=== PATIENT | male | born 1940 | race Asian ===

== ENCOUNTER 2019-02-07 12:46 | Emergency (ER) | payer OTHER, MEDICARE ==
[2019-02-07] MEDS ORDERED: HYDROCODONE/APAP 7.5/325 MG TAB ONE (13:45)
[2019-02-07 13:56] LABS: Absolute Lymphocytes (CBC) 0.6 K/uL (0.7-4.9); Absolute Monocytes 0.3 K/uL (0.1-1.3); Absolute Neutrophil 8.9 K/uL (1.8-8.0); Basophils % 0.3 % (0-1.3); Hematocrit 41.1 % (39.6-49.0); Lymphocytes % 5.8 % (15.3-44.8); MPV 8.4 fL (7.6-11.3); Monocytes % 2.6 % (3.3-12.3); RBC Red Blood Cell Count 4.28 M/uL (4.33-5.43)
--- NOTE | 2019-02-07 13:57 | RAD REPORT ---
EXAM DESCRIPTION: RAD - Knee Left 3 View - 02/07/2019 1:36 pm CLINICAL HISTORY: Left knee pain COMPARISON: None. FINDINGS: No fracture, dislocation or periosteal reaction.Moderate joint effusion is present. No yajaira nt space narrowing. Large bone spur present at the quadriceps tendon attachment to the patella. Edema changes are present in the subcutaneous fatty tissues. No air or foreign body. IMPRESSION: Moderate joint effusion with no acute bone finding. Clinical concerns for internal derangement or occult bony injury could be further assessed with MR im aging.
[2019-02-07 14:10] LABS: C-Reactive Protein 42.1 mg/L (<3.00); Potassium 3.8 mmol/L (3.5-5.1)
--- NOTE | 2019-02-07 14:42 | RAD REPORT ---
EXAM DESCRIPTION: US - Extremity Venous Uni Ltd - 02/07/2019 2:20 pm CLINICAL HISTORY: Left leg pain and swelling COMPARISON: None. TECHNIQUE: Real-time sonographic evaluation of the left lower extremity deep venous system was perfo rmed. FINDINGS: Normal compressibility, flow augmentation, phasic flow and spontaneous flow are identified in the left lower extremity common femoral, superficial femoral, popliteal and posterior tibial vein s. No intraluminal filling defects seen. IMPRESSION: No DVT in the left lower extremity.
[2019-02-07 17:24] LABS: Body Fluid Source SYNOVIAL
[2019-02-07 17:25] LABS: Appearance SLT. TURBID (CLEAR); Body Fluid WBC 990 /mm^3; Color of fluid Yellow (COLORLESS)
--- NOTE | 2019-02-07 18:01 | EDPHYS ---
Physician Documentation [facility] Name: Torin Galvez Age: 78 yrs Sex: Male : 1940 Arrival Date: 02/07/2019 Time: 12:50 Bed 15 Private MD: Emile Oh H ED Physician Domingo Greene HPI: 02/07 13:59 This 78 yrs old Male presents to ER via Ambulatory with complaints of Knee kb swelling. 13:59 The patient presents with decreased range of motion, pain, that is acute, swelling, kb tenderness. The complaints affect the left knee. Context: The problem was sustained at home, resulted from an unknown cause, the patient can partially bear weight, uses a walker, Problem is a result from a previous injury: No. Modifying factors: The symptoms are alleviated by remaining still, the symptoms are aggravated by movement, weight bearing, bending knee. Associated signs and symptoms: Pertinent positives: fever, swelling, warmth, Pertinent negatives calf tenderness, nausea, numbness, rash, tingling, vomiting, weakness. Treatment prior to arrival includes: indomethocin, tylenol #3, prednisone. Severity of symptoms: At their worst the symptoms were moderate, in the emergency department the symptoms are unchanged. The patient has not experienced similar symptoms in the past. The patient has been recently seen by a physician: the patient's primary care provider. Pt states he had a flare-up of gout to right great toe about a month ago. Started taking indomethocin for that as prescribed, then started having swelling. Went to PCP and was given Tylenol #3 for pain. States he took that for about a week and the pain and swelling moved to left leg. Went back to PCP and was given Prednisone taper for the swelling. States he was given a 9 day taper and he took day 6 dose today. Came in because his left knee "hurt like hell" and he was having chills and fever this morning. . Historical: - Allergies: 13:06 No Known Allergies; hb - Home Meds: 13:06 prednisone 20 mg Oral tab once daily [Active]; allopurinol 300 mg Oral tab 1 tab once hb daily [Active]; Tylenol #3 Oral [Active]; Symbicort inhalation inhalation [Active]; ProAir HFA 90 mcg/actuation inhalation HFAA [Active]; lisinopril 20 mg Oral tab 1 tab once daily [Active]; Metformin Oral [Active]; tamsulosin 0.4 mg oral cp24 [Active]; clonidine HCl 0.1 mg Oral tab 1 tab once daily [Active]; Combigan 0.2-0.5 % ophthalmic drop [Active]; - PMHx: 13:06 Gout; Hypertension; hb - Immunization history:: Adult Immunizations up to date. - Social history:: Smoking status: Patient/guardian denies using tobacco. - Ebola Screening: : No symptoms or risks identified at this time. ROS: 13:59 Neck: Negative for injury, pain, and swelling, Cardiovascular: Negative for chest pain, kb palpitations, and edema, Respiratory: Negative for shortness of breath, cough, wheezing, and pleuritic chest pain, Abdomen/GI: Negative for abdominal pain, nausea, vomiting, diarrhea, and constipation, Back: Negative for injury and pain, : Negative for injury, bleeding, discharge, and swelling, Neuro: Negative for headache, weakness, numbness, tingling, and seizure. 13:59 Constitutional: Positive for chills, fever. 13:59 MS/extremity: Positive for decreased range of motion, swelling, tenderness, warmth, of the left knee. Exam: 13:59 Constitutional: This is a well developed, well nourished patient who is awake, alert, kb and in no acute distress. Head/Face: Normocephalic, atraumatic. Neck: Trachea midline, no thyromegaly or masses palpated, and no cervical lymphadenopathy. Supple, full range of motion without nuchal rigidity, or vertebral point tenderness. No Meningismus. Chest/axilla: Normal chest wall appearance and motion. Nontender with no deformity. No lesions are appreciated. Cardiovascular: Regular rate and rhythm with a normal S1 and S2. No gallops, murmurs, or rubs. Normal PMI, no JVD. No pulse deficits. Respiratory: Lungs have equal breath sounds bilaterally, clear to auscultation and percussion. No rales, rhonchi or wheezes noted. No increased work of breathing, no retractions or nasal flaring. Abdomen/GI: Soft, non-tender, with normal bowel sounds. No distension or tympany. No guarding or rebound. No evidence of tenderness throughout. Neuro: Awake and alert, GCS 15, oriented to person, place, time, and situation. Cranial nerves II-XII grossly intact. Motor strength 5/5 in all extremities. Sensory grossly intact. Cerebellar exam normal. Normal gait. 13:59 Musculoskeletal/extremity: Extremities: grossly normal except: noted in the left knee: decreased ROM, pain, swelling, tenderness, warmth, noted in the left leg: swelling, ROM: limited active range of motion due to pain, in the left knee, Circulation is intact in all extremities. Sensation intact. Vital Signs: 13:06 BP 200 / 100; Pulse 100; Resp 18; Temp 99.2(TE); Pulse Ox 99% on R/A; Weight 64.41 kg; hb Height 5 ft. 3 in. (160.02 cm); Pain 9/10; 14:10 BP 185 / 91; Pulse 96; Resp 17; Pulse Ox 99% ; tw2 14:51 BP 165 / 88; Pulse 97; Resp 18; Temp 97.9(TE); Pulse Ox 95% on R/A; tw2 16:16 BP 178 / 99; Pulse 91; Resp 17; Pulse Ox 95% on R/A; tw2 17:13 BP 167 / 99; Pulse 90; Resp 17; Pulse Ox 96% on R/A; tw2 18:19 BP 168 / 84; Pulse 89; Resp 17; Pulse Ox 99% on R/A; tw2 13:06 Body Mass Index 25.15 (64.41 kg, 160.02 cm) hb Procedures: 15:58 Joint Treatment: Aspiration of left knee using 22 g spinal needle. Removed yellow rn fluid, bloody fluid, Specimen sent to lab. Dressed with 4x4s, Patient tolerated well. MDM: 13:08 Patient medically screened. kb 14:10 Data reviewed: vital signs, nurses notes. Data interpreted: Pulse oximetry: on room air kb is 99 %. Interpretation: normal. 17:55 ED course: Consulted with Dr. Forbes regarding fluid analysis, states consistent with rn gout and inflammatory arthritis and not septic arthritis, will dc home with continuation of gout meds and pain medication.. 17:58 Counseling: I had a detailed discussion with the patient and/or guardian regarding: the kb historical points, exam findings, and any diagnostic results supporting the discharge/admit diagnosis, lab results, radiology results, the need for outpatient follow up, a family practitioner, to return to the emergency department if symptoms worsen or persist or if there are any questions or concerns that arise at home. 02/07 13:21 Order name: CBC with Diff kb 02/07 13:21 Order name: Basic Metabolic Panel kb 02/07 13:21 Order name: Sed Rate kb 02/07 13:21 Order name: CRP; Complete Time: 14:10 kb 02/07 13:21 Order name: Procalcitonin; Complete Time: 14:58 kb 02/07 13:21 Order name: Blood Culture Adult (2) kb 02/07 13:21 Order name: Knee Left 3 View XRAY; Complete Time: 14:10 kb 02/07 13:22 Order name: CBC with Automated Diff; Complete Time: 14:21 EDMS 02/07 13:23 Order name: Basic Metabolic Panel; Complete Time: 14:10 EDMS 02/07 13:23 Order name: Sedimentation Rate, Westergren; Complete Time: 14:21 EDMS 02/07 15:02 Order name: Body Fluid Culture rn 02/07 15:02 Order name: Fluid Cell Count,Body kb 02/07 15:02 Order name: Fluid Crystals; Complete Time: 16:56 kb 02/07 15:03 Order name: Body Fluid Cell Count; Complete Time: 17:52 EDMS 02/07 13:21 Order name: IV Start; Complete Time: 14:07 kb 02/07 13:21 Order name: US Extremity Venous Unilateral Ltd; Complete Time: 14:44 kb 02/07 14:46 Order name: Vital Signs; Complete Time: 14:52 kb 02/07 15:08 Order name: Surgical Consent; Complete Time: 16:14 kb 02/07 15:18 Order name: Misc. Order; Complete Time: 15:18 tw2 Administered Medications: 13:35 Drug: [place] (7.5 mg-325 mg) 1 tabs Route: PO; tw2 14:52 Follow up: Response: No adverse reaction; Pain is decreased tw2 Disposition: 18:36 Co-signature as Attending Physician, Domingo Greene MD. rn Disposition: 02/07/19 17:59 Discharged to Home. Impression: Gout. - Condition is Stable. - Discharge Instructions: Gout, [id number]. - Prescriptions for Tylenol- Codeine #3 300-30 mg Oral Tablet - take 1 tablet by ORAL route every 6 hours As needed; 20 tablet. - Medication Reconciliation Form, Thank You Letter, Antibiotic Education, Prescription Opioid Use form. - Follow up: Emergency Department; When: As needed; Reason: Worsening of condition. Follow up: Private Physician; When: 2 - 3 days; Reason: Recheck today's complaints, Continuance of care, Re-evaluation by your physician. Signatures: Dispatcher [employer] EDHI Shauna Alberto, MENTAL HEALTH TECH-C MENTAL HEALTH TECH-Domingo Phillip MD MD rn Baxter, Heather, RN RN hb Wise, Tara, RN RN tw2 Corrections: (The following items were deleted from the chart) 18:34 17:59 02/07/2019 17:59 Discharged to Home. Impression: Gout. Condition is Stable. Forms tw2 are Medication Reconciliation Form, Thank You Letter, Antibiotic Education, Prescription Opioid Use. Follow up: Emergency Department; When: As needed; Reason: Worsening of condition. Follow up: Private Physician; When: 2 - 3 days; Reason: Recheck today's complaints, Continuance of care, Re-evaluation by your physician. kb
--- NOTE | 2019-02-07 18:01 | ER ---
Nurse's Notes [facility] Name: Torin Galvez Age: 78 yrs Sex: Male : 1940 Arrival Date: 02/07/2019 Time: 12:50 Bed 15 Private MD: Emile Oh H Diagnosis: Gout Presentation: 02/07 13:02 Presenting complaint: left knee pain x 1 week, chills and subjective fever today. Pain hb is unrelieved by allopurinol, prednisone, and Tylenol #3. Transition of care: patient was not received from another setting of care. Onset of symptoms was February 07, 2019. Risk Assessment: Do you want to hurt yourself or someone else? Patient reports no desire to harm self or others. Care prior to arrival: None. 13:02 Method Of Arrival: Ambulatory hb 13:02 Acuity: J CARLOS 3 hb 13:07 Initial Sepsis Screen: Does the patient meet any 2 criteria? No. Patient's initial hb sepsis screen is negative. Does the patient have a suspected source of infection? No. Patient's initial sepsis screen is negative. Historical: - Allergies: 13:06 No Known Allergies; hb - Home Meds: 13:06 prednisone 20 mg Oral tab once daily [Active]; allopurinol 300 mg Oral tab 1 tab once hb daily [Active]; Tylenol #3 Oral [Active]; Symbicort inhalation inhalation [Active]; ProAir HFA 90 mcg/actuation inhalation HFAA [Active]; lisinopril 20 mg Oral tab 1 tab once daily [Active]; Metformin Oral [Active]; tamsulosin 0.4 mg oral cp24 [Active]; clonidine HCl 0.1 mg Oral tab 1 tab once daily [Active]; Combigan 0.2-0.5 % ophthalmic drop [Active]; - PMHx: 13:06 Gout; Hypertension; hb - Immunization history:: Adult Immunizations up to date. - Social history:: Smoking status: Patient/guardian denies using tobacco. - Ebola Screening: : No symptoms or risks identified at this time. Screenin:04 Abuse screen: Denies threats or abuse. Nutritional screening: No deficits noted. tw2 Tuberculosis screening: No symptoms or risk factors identified. Fall Risk None identified. Assessment: 13:10 General: Appears in no apparent distress. distressed, well groomed, Behavior is calm, tw2 cooperative, appropriate for age. Pain: Complains of pain in left leg. Neuro: Level of Consciousness is awake, alert, obeys commands, Oriented to person, place, time, situation. Cardiovascular: Heart tones S1 S2 Patient's skin is warm and dry. Respiratory: Airway is patent Respiratory effort is even, unlabored, Respiratory pattern is regular, symmetrical, Breath sounds are clear bilaterally. GI: No signs and/or symptoms were reported involving the gastrointestinal system. : No signs and/or symptoms were reported regarding the genitourinary system. EENT: No signs and/or symptoms were reported regarding the EENT system. Derm: No signs and/or symptoms reported regarding the dermatologic system. Musculoskeletal: Swelling present in left knee. 14:06 Reassessment: Patient appears in no apparent distress at this time. No changes from tw2 previously documented assessment. Patient and/or family updated on plan of care and expected duration. Pain level reassessed. Patient is alert, oriented x 3, equal unlabored respirations, skin warm/dry/pink. US at bedside at this time. 15:00 Reassessment: Patient appears in no apparent distress at this time. No changes from tw2 previously documented assessment. Patient and/or family updated on plan of care and expected duration. Pain level reassessed. Patient is alert, oriented x 3, equal unlabored respirations, skin warm/dry/pink. 16:16 Reassessment: Patient appears in no apparent distress at this time. No changes from tw2 previously documented assessment. Patient and/or family updated on plan of care and expected duration. Pain level reassessed. Patient is alert, oriented x 3, equal unlabored respirations, skin warm/dry/pink. 17:13 Reassessment: Patient appears in no apparent distress at this time. No changes from tw2 previously documented assessment. Patient and/or family updated on plan of care and expected duration. Pain level reassessed. Patient is alert, oriented x 3, equal unlabored respirations, skin warm/dry/pink. 18:20 Reassessment: Patient appears in no apparent distress at this time. No changes from tw2 previously documented assessment. Patient and/or family updated on plan of care and expected duration. Pain level reassessed. Patient is alert, oriented x 3, equal unlabored respirations, skin warm/dry/pink. 18:34 Reassessment: Patient appears in no apparent distress at this time. tw2 Vital Signs: 13:06 BP 200 / 100; Pulse 100; Resp 18; Temp 99.2(TE); Pulse Ox 99% on R/A; Weight 64.41 kg; hb Height 5 ft. 3 in. (160.02 cm); Pain 9/10; 14:10 BP 185 / 91; Pulse 96; Resp 17; Pulse Ox 99% ; tw2 14:51 BP 165 / 88; Pulse 97; Resp 18; Temp 97.9(TE); Pulse Ox 95% on R/A; tw2 16:16 BP 178 / 99; Pulse 91; Resp 17; Pulse Ox 95% on R/A; tw2 17:13 BP 167 / 99; Pulse 90; Resp 17; Pulse Ox 96% on R/A; tw2 18:19 BP 168 / 84; Pulse 89; Resp 17; Pulse Ox 99% on R/A; tw2 13:06 Body Mass Index 25.15 (64.41 kg, 160.02 cm) hb ED Course: 12:50 Patient arrived in ED. mr 12:51 Emile Oh DO is Private Physician. mr 13:03 Triage completed. hb 13:03 [facility]una Alber[facility]-C [facility] kb 13:03 Domingo Greene MD is Attending Physician. kb 13:06 Arm band placed on right wrist. hb 13:09 Kaylah Maria, BRYANT is Primary Nurse. tw2 13:10 Bed in low position. Call light in reach. Pulse ox on. NIBP on. tw2 13:38 Knee Left 3 View XRAY In Process Unspecified. EDMS 13:40 Inserted saline lock: 22 gauge in right antecubital area, using aseptic technique. tw2 Blood collected. 14:19 Ultrasound completed. Patient tolerated well. sg3 14:21 US Extremity Venous Unilateral Ltd In Process Unspecified. EDMS 15:45 assisted provider with needle aspiration to LEFT knee, pt tolerated well, returned 10 tw2 ml serosanguineous fluid, pressure dressing applied. 18:34 IV discontinued, intact, bleeding controlled, No redness/swelling at site. Pressure tw2 dressing applied. Administered Medications: 13:35 Drug: [place] (7.5 mg-325 mg) 1 tabs Route: PO; tw2 14:52 Follow up: Response: No adverse reaction; Pain is decreased tw2 Outcome: 17:59 Discharge ordered by . carlos 18:33 Discharged to home ambulatory, with family. tw2 18:33 Condition: stable 18:33 Discharge instructions given to patient, family, Instructed on discharge instructions, follow up and referral plans. no drinking with medication, no driving heavy equipment, medication usage, Demonstrated understanding of instructions, follow-up care, medications, Prescriptions given X 1. 18:34 Patient left the ED. tw2 Signatures: Dispatcher [employer] EDMS Shauna Alberto, RECOVERY ROOM NURSE-C RECOVERY ROOM NURSE-Shannan Martinez mr Kathleen Smith RN RN Kaylah Maria RN RN tw2 Jana Field 3 Corrections: (The following items were deleted from the chart) 13:08 13:02 Presenting complaint: left knee pain x 1 week, chills and subjective fever today. hb hb 13:11 13:02 Presenting complaint: left knee pain x 1 week, chills and subjective fever today. hb Pain is unrelieved by prednisone and Tylenol #3. hb
== END 2019-02-07 18:34 | disposition home or self-care (01) ==
LOC: ER 12:46
PROC: 0S9D3ZX Drainage of Left Knee Joint, Percutaneous Approach, Diagnostic (ICD-10-PCS; principal; 2019-02-07)
DX: M10.9 Gout, unspecified (principal); I10 Essential (primary) hypertension
CPT/HCPCS: 36415; 80048; 84145; 85025; 85652; 86140; 87040; 87070; 89050; 89060; 93971; 99284

== ENCOUNTER 2024-06-27 05:20 | Emergency (ER) | payer OTHER, MEDICARE ==
--- NOTE | 2024-06-27 06:39 | EDPHYS ---
Physician Documentation [facility] Name: Torin Galvez Age: 83 yrs Sex: Male : 1940 Arrival Date: 06/27/2024 Time: 05:20 Bed 14 Private MD: Emile Oh H ED Physician Domingo Greene HPI: 06/27 05:40 This 83 yrs old Male presents to ER via Unassigned with complaints of Problem rn With Urinary Catheter. 05:40 The patient presents with a Moss catheter problem, Draining slowly, urinary symptoms. rn Onset: The symptoms/episode began/occurred last night. Modifying factors: The symptoms are alleviated by nothing, the symptoms are aggravated by nothing. Severity of symptoms: At their worst the symptoms were mild, in the emergency department the symptoms are unchanged. The patient has not experienced similar symptoms in the past. Patient and family member report this Moss catheter was placed by urologist 5 days ago. Slow drainage of urine since last night, they tried flushing it but did not change much. No bleeding. No fever. Denies any discomfort.. Historical: - Allergies: 05:30 oxybutynin; kj2 - Home Meds: 06:14 allopurinol 300 mg Oral tab 1 tab once daily [Active]; clonidine HCl 0.1 mg Oral tab 1 kj2 tab once daily [Active]; Combigan 0.2-0.5 % ophthalmic drop [Active]; lisinopril 20 mg Oral tab 1 tab once daily [Active]; Metformin Oral [Active]; prednisone 20 mg Oral tab once daily [Active]; ProAir HFA 90 mcg/actuation inhalation HFAA [Active]; Symbicort inhalation [Active]; tamsulosin 0.4 mg Oral cp24 [Active]; Tylenol #3 Oral [Active]; - PMHx: 06:14 COPD (Hypertension); Gout; Hypertension; kj2 - Immunization history:: Adult Immunizations not immunized. - Infectious Disease History:: Denies. - Family history:: not pertinent. - Social history:: Smoking status: Patient/guardian denies using tobacco, the patient reports quitting approximately 30 years ago. ROS: 05:40 Constitutional: Negative for fever, chills, and weight loss, Abdomen/GI: Negative for rn abdominal pain, nausea, vomiting, diarrhea, and constipation, : Positive for slow drainage of Moss catheter Exam: 05:40 Constitutional: This is a well developed, well nourished patient who is awake, alert, rn and in no acute distress. Abdomen/GI: Soft, nontender, nondistended Male : Moss catheter in place. Moderate sediment noted, there is urine in tubing. Patient emptied collection bag prior to arrival. Vital Signs: 05:30 BP 146 / 83; Pulse 107; Resp 18; Temp 97.9; Pulse Ox 98% on R/A; Weight 69.85 kg; kj2 Height 5 ft. 4 in. ; Pain 0/10; 06:17 BP 143 / 87; Pulse 106; Resp 18; Temp 98.4; Pulse Ox 97% on R/A; kj2 06:41 BP 150 / 86; Pulse 102; Resp 18; Temp 98.4; Pulse Ox 97% on R/A; kj2 05:30 Body Mass Index 26.43 (69.85 kg, 162.56 cm) kj2 05:30 Pain Scale: Adult kj2 MDM: 05:27 Medical Screening Exam initiated rn 06:33 Differential diagnosis: urinary retention, Moss catheter problem. Data reviewed: vital rn signs, nurses notes, and as a result, I will discharge patient. Counseling: I had a detailed discussion with the patient and/or guardian regarding the historical points, exam findings, and any diagnostic results supporting the discharge/admit diagnosis, the need for outpatient follow up, to return to the emergency department if symptoms worsen or persist or if there are any questions or concerns that arise at home. Special discussion: I discussed with the patient/guardian in detail that at this point there is no indication for admission to the hospital. It is understood, however, that if the symptoms persist or worsen the patient needs to return immediately for re-evaluation. ED course: Patient had Moss catheter irrigated and flushed, all fluid administered was returned. Post irrigation bladder scanner shows only 41 mL. Will discharge home with urology follow-up.. 06/27 05:40 Order name: Bladder Irrigation; Complete Time: 06:38 rn Administered Medications: No medications were administered Disposition Summary: 06/27/24 06:38 Discharge Ordered Notes: Location: Home rn Problem: new rn Symptoms: have improved rn Condition: Stable rn Diagnosis - Mechanical complication of urinary (indwelling) catheter rn Followup: rn - With: Private Physician - When: As needed - Reason: Recheck today's complaints, Re-evaluation by your physician Discharge Instructions: - Discharge Summary Sheet rn - Indwelling Urinary Catheter Care, Adult rn Forms: - Medication Reconciliation Form rn - Antibiotic journeyman pipe welder - Prescription Opioid Use rn - Patient Portal Instructions rn - Leadership Thank You Letter rn Signatures: Domingo Greene MD MD rn Jordan, Krystal, RN RN kj2 Corrections: (The following items were deleted from the chart) 05:41 05:40 Hospitalizations: No recent hospitalization is reported. rn rn 05:41 05:40 The history from the nurse's notes was reviewed. rn rn 06:16 05:30 Allergies: No Known Allergies; kj2 kj2
--- NOTE | 2024-06-27 06:39 | ER ---
Nurse's Notes [facility] Name: Torin Galvez Age: 83 yrs Sex: Male : 1940 Arrival Date: 06/27/2024 Time: 05:20 Bed 14 Private MD: Emile Oh H Diagnosis: Mechanical complication of urinary (indwelling) catheter Presentation: 06/27 05:30 Chief complaint: Patient's son or daughter states: PATIENT'S CATHETER IS NOT DRAINING kj2 THE USUAL AMOUNT OF URINE. Coronavirus screen: At this time, the client does not indicate any symptoms associated with coronavirus-19. Ebola Screen: No symptoms or risks identified at this time. Initial Sepsis Screen: Does the patient meet any 2 criteria? No. Patient's initial sepsis screen is negative. Does the patient have a suspected source of infection? No. Patient's initial sepsis screen is negative. Risk Assessment: Do you want to hurt yourself or someone else? Patient reports no desire to harm self or others. Onset of symptoms. 05:30 Method Of Arrival: Ambulatory kj2 05:30 Acuity: J CARLOS 3 kj2 Triage Assessment: 05:30 General: Appears in no apparent distress. Behavior is calm. Pain: Denies pain. Neuro: kj2 Level of Consciousness is awake, alert, Oriented to person, place, time, situation. Cardiovascular: Patient's skin is warm and dry. Respiratory: Airway. GI: No signs and/or symptoms were reported involving the gastrointestinal system. : Reports CATHETER NOTT DRAINING. Musculoskeletal: No signs and/or symptoms reported regarding the musculoskeletal system. Historical: - Allergies: 05:30 oxybutynin; kj2 - Home Meds: 06:14 allopurinol 300 mg Oral tab 1 tab once daily [Active]; clonidine HCl 0.1 mg Oral tab 1 kj2 tab once daily [Active]; Combigan 0.2-0.5 % ophthalmic drop [Active]; lisinopril 20 mg Oral tab 1 tab once daily [Active]; Metformin Oral [Active]; prednisone 20 mg Oral tab once daily [Active]; ProAir HFA 90 mcg/actuation inhalation HFAA [Active]; Symbicort inhalation [Active]; tamsulosin 0.4 mg Oral cp24 [Active]; Tylenol #3 Oral [Active]; - PMHx: 06:14 COPD (Hypertension); Gout; Hypertension; kj2 - Immunization history:: Adult Immunizations not immunized. - Infectious Disease History:: Denies. - Family history:: not pertinent. - Social history:: Smoking status: Patient/guardian denies using tobacco, the patient reports quitting approximately 30 years ago. Screenin:30 [facility] ED Fall Risk Assessment (Adult) History of falling in the last 3 months, kj2 including since admission No falls in past 3 months (0 pts) Confusion or Disorientation No (0 pts) Intoxicated or Sedated No (0 pts) Impaired Gait No (0 pts) Mobility Assist Device Used No (0 pt) Altered Elimination No (0 pt) Score/Fall Risk Level 0 - 2 = Low Risk. Abuse screen: Denies threats or abuse. Denies injuries from another. Nutritional screening: No deficits noted. Tuberculosis screening: No symptoms or risk factors identified. Assessment: 05:48 General: SEE TRIAGE ASSESSMENT. kj2 06:38 Reassessment: BLADDER IRRIGATED WITH NORMAL SALINE, ALL SOLUTION RETURNED AND PATIENT kj2 TOLERATED WELL. BLADDER THEN SCANNED , 41ML IN BLADDER. Vital Signs: 05:30 BP 146 / 83; Pulse 107; Resp 18; Temp 97.9; Pulse Ox 98% on R/A; Weight 69.85 kg; kj2 Height 5 ft. 4 in. ; Pain 0/10; 06:17 BP 143 / 87; Pulse 106; Resp 18; Temp 98.4; Pulse Ox 97% on R/A; kj2 06:41 BP 150 / 86; Pulse 102; Resp 18; Temp 98.4; Pulse Ox 97% on R/A; kj2 05:30 Body Mass Index 26.43 (69.85 kg, 162.56 cm) kj2 05:30 Pain Scale: Adult kj2 ED Course: 05:26 Patient arrived in ED. gm2 05:27 Emile Oh DO is Private Physician. gm2 05:27 Domingo Greene MD is Attending Physician. rn 05:30 Patient has correct armband on for positive identification. Placed in gown. Call light kj2 in reach. Side rails up X 1. Adult w/ patient. Provided Education on: call LIGHT. 05:30 Arm band placed on Patient placed in an exam room, on a stretcher. kj2 05:42 Vashti Emanuel, RN is Primary Nurse. kj2 05:45 Triage completed. kj2 06:40 No provider procedures requiring assistance completed. kj2 06:44 Patient did not have IV access during this emergency room visit. kj2 Administered Medications: No medications were administered Medication: 06:17 VIS not applicable for this client. kj2 Outcome: 06:38 Discharge ordered by . rn 06:44 Discharged to home ambulatory, with family, kj2 06:44 Condition: stable 06:44 Discharge instructions given to patient, family, Instructed on discharge instructions, follow up and referral plans. Demonstrated understanding of instructions, follow-up care, 06:53 Patient left the ED. kj2 Signatures: Domingo Greene MD MD rn Mitchell, Ginger 2 Vashti Emanuel RN RN kj2 Corrections: (The following items were deleted from the chart) 05:41 05:40 Hospitalizations: No recent hospitalization is reported. rn rn 05:41 05:40 The history from the nurse's notes was reviewed. rn rn 06:16 05:30 Allergies: No Known Allergies; kj2 kj2
[2024-06-27 15:59] VITALS: TEMP 98.4; O2SAT 97
[2024-06-27 16:05] VITALS: BP 150/86
== END 2024-06-27 06:53 | disposition home or self-care (01) ==
LOC: ER 05:20
DX: T83.098A Other mechanical complication of other urinary catheter, initial encounter (principal); I10 Essential (primary) hypertension; J44.9 Chronic obstructive pulmonary disease, unspecified; Z79.899 Other long term (current) drug therapy; Z87.891 Personal history of nicotine dependence